=== PATIENT | male | born 1975 | race Caucasian/White ===

== ENCOUNTER 2017-08-07 17:14 | Observation (INO) | payer BC ==
[~2017-08-07] VITALS: Ht 175.3 cm; Wt 95.9 kg
[2017-08-07 18:08] VITALS: BP 114/72
[2017-08-07] MEDS ORDERED: DEXTROSE 50% 25 GM / 50ML DISP.SYRIN. IV PRN (18:15)
[2017-08-07] MEDS ORDERED: POTASSIUM CHLORIDE 10MEQ 100 ML IV PRN ×2 (18:30)
[2017-08-07 18:36] LABS: BASO # 0.1 x10^3/uL (0.0-0.2); BASO % 1 % (0-3); EOS # 0.2 x10^3/uL (0.0-0.7); EOS % 2 % (0-3); HEMATOCRIT 45.1 % (39.0-53.0); HEMOGLOBIN 15.8 g/dL (13.0-17.5); LYMPH # 3.5 x10^3/uL (1.0-4.8); LYMPH % 32 % (24-48); MEAN CORPUSCULAR HEMOGLOBIN 30 pg (25-35); MEAN CORPUSCULAR HGB CONC 35 g/dL (31-37); MEAN CORPUSCULAR VOLUME 85 fL (79-100); MONO # 0.7 x10^3/uL (0.0-1.1); MONO % 6 % (0-9); NEUT # 6.4 x10^3uL (1.8-7.7); NEUT % 59 % (31-73); PLATELET COUNT 194 x10^3/uL (140-400); RED BLOOD COUNT 5.31 x10^6/uL (4.30-5.70); RED CELL DISTRIBUTION WIDTH 12.4 % (11.5-14.5); WHITE BLOOD COUNT 10.8 x10^3/uL (4.0-11.0)
[2017-08-07] MEDS: IV NORMAL SALINE 1,000ML 1,000 ML IV SCH (19:16)
[2017-08-07 20:23] LABS: ALBUMIN 3.4 g/dL (3.4-5.0); ALBUMIN/GLOBULIN RATIO 1.1 (1.0-1.7); CALCIUM 8.8 mg/dL (8.5-10.1); CREATININE 0.9 mg/dL (0.7-1.3); GFR 92.1; POTASSIUM 3.6 mmol/L (3.5-5.1); TOTAL BILIRUBIN 0.4 mg/dL (0.2-1.0); TOTAL PROTEIN 6.6 g/dL (6.4-8.2)
[2017-08-07 20:23] LABS: PHOSPHORUS 3.8 mg/dL (2.6-4.7)
[2017-08-07 20:29] LABS: BGAS PH 7.48 (7.35-7.46)
[2017-08-07 20:40] VITALS: BP 120/85
[2017-08-07] MEDS ORDERED: ENOXAPARIN 40 MG/0.4 ML DISP.SYRIN. SQ SCH (21:00)
[2017-08-07] MEDS: POTASSIUM CHLORIDE 20 MEQ TABLET.ER. PO SCH (21:19)
[2017-08-07] MEDS: INSULIN ASPART 300 UNITS/3 ML INSULN.PEN SQ SCH (21:24)
[2017-08-07 23:11] LABS: BACTERIA,URINE 0 /HPF (0-FEW); BARBITURATES NEG (NEG); BENZODIAZEPINES NEG (NEG); BILIRUBIN,URINE NEG (NEG); CANNABINOIDS NEG (NEG); CLARITY,URINE CLEAR; COCAINE NEG (NEG); COLOR,URINE YELLOW; GLUCOSE,URINE >=1000 mg/dL (NEG); METHADONE NEG (NEG); NITRITE,URINE NEG (NEG); OPIATES NEG (NEG); PHENCYCLIDINE NEG (NEG); RBC,URINE OCC /HPF (0-2); SQUAMOUS EPITHELIAL CELL,UR OCC /LPF; UROBILINOGEN,URINE 0.2 mg/dL (0.2 mg/dL); WBC,URINE OCC /HPF (0-4)
[2017-08-07 23:13] LABS: AMPHETAMINE/METHAMPHETAMINE NEG (NEG)
[2017-08-07 23:30] VITALS: BP 121/71
[2017-08-08] MEDS: IV NORMAL SALINE 1,000ML 1,000 ML IV SCH (03:45)
[2017-08-08 06:18] VITALS: BP 102/70
[2017-08-08 06:52] LABS: BASO # 0.1 x10^3/uL (0.0-0.2); BASO % 1 % (0-3); EOS # 0.2 x10^3/uL (0.0-0.7); EOS % 3 % (0-3); HEMATOCRIT 41.7 % (39.0-53.0); HEMOGLOBIN 14.8 g/dL (13.0-17.5); LYMPH # 2.9 x10^3/uL (1.0-4.8); LYMPH % 43 % (24-48); MEAN CORPUSCULAR HEMOGLOBIN 30 pg (25-35); MEAN CORPUSCULAR HGB CONC 36 g/dL (31-37); MEAN CORPUSCULAR VOLUME 85 fL (79-100); MONO # 0.5 x10^3/uL (0.0-1.1); MONO % 8 % (0-9); NEUT # 3.1 x10^3uL (1.8-7.7); NEUT % 46 % (31-73); PLATELET COUNT 178 x10^3/uL (140-400); RED BLOOD COUNT 4.92 x10^6/uL (4.30-5.70); RED CELL DISTRIBUTION WIDTH 12.5 % (11.5-14.5); WHITE BLOOD COUNT 6.8 x10^3/uL (4.0-11.0)
[2017-08-08 06:59] LABS: CALCIUM 8.3 mg/dL (8.5-10.1); CREATININE 0.8 mg/dL (0.7-1.3); GFR 105.5; POTASSIUM 3.4 mmol/L (3.5-5.1)
[2017-08-08] MEDS: POTASSIUM CHLORIDE 20 MEQ TABLET.ER. PO SCH (08:20)
[2017-08-08] MEDS: INSULIN ASPART 300 UNITS/3 ML INSULN.PEN SQ SCH ×2 (08:23→12:06)
[2017-08-08] MEDS ORDERED: INSULIN DETEMIR 300 UNITS/3 ML INSULN.PEN. SQ SCH (09:30)
[2017-08-08 10:26] VITALS: BP 102/69
[2017-08-08] MEDS ORDERED: INSU100I27 SQ (11:21)
[2017-08-08] MEDS ORDERED: METF500T PO (11:21)
[2017-08-08] MEDS ORDERED: GLIP5TAB22 PO (11:21)
[2017-08-08] MEDS ORDERED: metFORMIN 500 MG TABLET PO SCH (17:00)
--- NOTE | 2017-08-08 23:38 | DS ---
DATE OF DISCHARGE: 08/08/2017 ADDENDUM IMPRESSION: Diabetic ketoacidosis, hyperglycemia, hypokalemia. He will be sent home on a diabetic diet. See EMRAD. KRISTINA MAURICIO MD DR: RAYMOND/pilo JOB#: [id number] / [id number]
--- NOTE | 2017-08-08 23:43 | DS ---
DATE OF DISCHARGE: 08/08/2017 HOSPITAL COURSE: A 42-year-old male came in the office. He was seen with possibility of diabetes. Sugar was over 500. As a result of this, the patient was admitted to the hospital for IV fluids and further evaluation. He did have some ketones in his urine. He was given fluids, monitored carefully, make further evaluation on him as indicated. He made excellent progress during the rest of his hospitalization. Potassium was slightly low. He was given diabetic education as much as could be done as well as getting teaching how to use Accu-Chek machines, insulin. He wanted to be started on oral medications and was given dietary information as well. He will follow up in 7-10 days. See EMRAD. Make further evaluation at that time. KRISTINA MAURICIO MD DR: RAYMOND/pilo JOB#: [id number] / [id number]
[2017-08-09 00:06] LABS: HEMOGLOBIN A1C 14.2 % (4.8-5.6)
== END 2017-08-08 13:30 | disposition home or self-care (01) ==
LOC: 1 SOUTH 17:40 → INTOOBSV 17:40
PROVIDERS: ADMIT Family Medicine; ATTEND Family Medicine
DX: E10.10 Type 1 diabetes mellitus with ketoacidosis without coma (principal); E10.65 Type 1 diabetes mellitus with hyperglycemia; E87.6 Hypokalemia; R51 Headache; R20.2 Paresthesia of skin
CPT/HCPCS: 36415; 80048; 80053; 80307; 81001; 82010; 82803; 82947; 83036; 83690; 83930; 84100; 84443; 85025; 87040; 96360; 96361; 96372; 99406; G0378; G0379; J1650; J1815; G0479; J7030

== ENCOUNTER 2021-09-21 13:37 | Emergency (ER) | payer SELFPAY ==
[~2021-09-21] VITALS: Ht 175.3 cm; Wt 107.3 kg
[~2021-09-21 13:37] MED LIST: GLIP5TAB22 PO; INSU100I27 SQ; METF500T PO
[2021-09-21] MEDS ORDERED: CLIN-95 PO (14:16)
[2021-09-21] MEDS ORDERED: CHLO15MO2 PO (14:16)
[2021-09-21] MEDS ORDERED: TRAM50TA PO (14:16)
--- NOTE | 2021-09-21 14:17 | PHYS DOC ---
Past History Additional Past Medical Histor: neuropathy Past Surgical History: Other Additional Past Surgical Histo: L knee Smoking: Cigarettes Alcohol Use: Occasionally General Adult EDM: Chief Complaint: DENTAL PROBLEM HPI: HPI: Patient is a 46 year old male who presents with right lower jaw pain and swelli ng secondary to broken tooth. Patient states he broke his tooth about 2 years ago and has intermittently had infections surrounding the tooth. Additionally, patient has 2 other broken teeth on the left side of his mouth. This most recent infection, however, is more painful and has developed a large abscess. Patient reports facial swelling. He denies fever, chills, generalized weakness, chest pain, palpitations. Patient has no other complaints at this time. Review of Systems: Review of Systems: ROS negative or noncontributory except as mentioned in HPI. Allergies: Allergies: Allergies Coded Allergies Type Severity Reaction Last Updated Verified Penicillins Allergy Unknown 08/07/17 Yes Physical Exam: PE: Constitutional: Well developed, well nourished, no acute distress, non-toxic appearance. HENT: Normocephalic, atraumatic, bilateral external ears normal, oropharynx moist, markedly poor dentition with multiple dental caries and missing dentition, abscess noted between the cheek and mandible on the right side without active drainage,, nose normal. Eyes: EOMI, conjunctiva normal, no discharge, no periorbital swelling or pain. Neck: Normal range of motion, right-sided submandibular lymphadenopathy, no stridor. Cardiovascular: Heart regular rate and rhythm. No apparent murmurs, rubs or gallops. Skin: Warm, dry, no erythema, no rash. Extremities: No cyanosis, no clubbing, ROM intact, no edema. Neurologic: Alert and oriented x4, normal motor function, normal sensory function, no focal deficits noted. Current Patient Data: Vital Signs: Vital Signs Date Time Temp Pulse Resp B/P (MAP) Pulse Ox O2 Delivery O2 Flow Rate FiO2 09/21/21 13:51 97.7 75 18 144/82 (102) 99 Room Air Heart Score: C/O Chest Pain: No Course & Med Decision Making: Course & Med Decision Making Pertinent Labs and Imaging studies reviewed. (See chart for details) Patient is a 46-year-old male with poor dentition who presents with dental abscess. Patient has had multiple dental abscesses in the past. He does not currently have regular dental care or establish care with a dentist office. Patient was provided with prescription for antibiotics and analgesics as well as a list of local dental clinics that frequently treat uninsured patients. Return precautions were provided. Patient understands and is agreeable to discharge plan. Karen Disclaimer: Karen Disclaimer: This electronic medical record was generated, in whole or in part, using a voice recognition dictation system. Departure Departure: Impression: Primary Impression: Dental abscess Additional Impression: Poor dentition requiring referral to dentistry Disposition: 01 HOME / SELF CARE / HOMELESS Condition: STABLE Referrals: ROSA CARRASCO APRN (PCP) Patient Instructions: Dental Abscess, Dental Pain, [id number] Additional Instructions: EMERGENCY DEPARTMENT GENERAL DISCHARGE INSTRUCTIONS Thank you for coming to [facility] (ED) today and trusting us with you care. We trust that you had a positive experience in our Emergency Department. If you wish to speak to the department management, you may call the director at [phone]. YOUR FOLLOW UP INSTRUCTIONS ARE FOLLOWS: 1. Follow up with your primary care doctor. If you do not have a primary doctor, please ask for a resource list of physicians or clinics that may be able to assist you with follow up care. 2. The emergency provider has interpreted your imaging studies, if any were ordered. The radiology environmental communications specialist also reviewed them. If there is a change in the findings, you will be notified in 48 hours when at all possible. 3. If a lab test or culture has been done, your results will be reviewed and you will be notified if you need a change in treatment. 4. Follow instructions verbalized to you and refer to the printouts if needed. ADDITIONAL INSTRUCTIONS AND INFORMATION: 1. Your care today has been supervised by a physician who is specially trained in emergency care. Many problems require more than one evaluation for a complete diagnosis and treatment. We recommend that you schedule your follow up appointment as recommended to ensure complete treatment of you illness or injury. If you are unable to obtain follow up care and continue to have a problem, or if your condition worsens, we recommend that you return to the ED. 2. We are not able to safely determine your condition over the phone nor are we able to give sound medical advice over the phone. For these safety reasons, if you call for medical advice we will ask you to come to the ED for further evaluation. 3. If you have any questions regarding these discharge instructions please call the ED at [phone]. SAFETY INFORMATION: In the interest of safety, wellness, and injury prevention; we encourage you to wear your seat belt, if you smoke; quite smoking, and we encourage family to use a protective helmet for bicycling and other sporting events that present an increased risk for head injury. IF YOUR SYMPTOMS WORSEN OR NEW SYMPTOMS DEVELOP, OR YOU HAVE CONCERNS ABOUT YOUR CONDITION; OR IF YOUR CONDITION WORSENS WHILE YOU ARE WAITING FOR YOUR FOLLOW UP APPOINTMENT; EITHER CONTACT YOUR PRIMARY CARE DOCTOR, THE PHYSICIAN WHOSE NAME AND NUMBER YOU WERE GIVEN, OR RETURN TO THE ED IMMEDIATELY. Scripts Chlorhexidine Gluconate (PERIDEX) 15 Ml Mouthwash 15-30 ML PO TID for dental abscess for 8 Days, #473 ML 0 Refills Prov: RICHARD RIOS 09/21/21 Tramadol Hcl (TRAMADOL HCL) 50 Mg Tablet 50 MG PO PRN Q6HRS PRN for PAIN, #20 TAB Prov: RICHARD RIOS 09/21/21 Clindamycin Hcl (CLINDAMYCIN HCL) 300 Mg Capsule 1 CAP PO QID for abscess for 7 Days, #28 CAP Prov: RICHARD RIOS 09/21/21 RICHARD RIOS Sep 21, 2021 14:17
== END 2021-09-21 14:27 | disposition home or self-care (01) ==
LOC: ER 13:37
DX: K04.7 Periapical abscess without sinus (principal); K02.9 Dental caries, unspecified; F17.210 Nicotine dependence, cigarettes, uncomplicated; Z88.0 Allergy status to penicillin
CPT/HCPCS: 99283